=== PATIENT | male | born 1980 | race Caucasian/White ===

== ENCOUNTER 2017-05-29 07:50 | Emergency (ER) | payer SELFPAY ==
--- NOTE | 2017-05-29 08:47 | EDPHY ---
H & P Stated Complaint: Not sleeping, depressed, anxious, vague SI (no plan) Time Seen by Provider: 05/29/17 08:12 HPI/ROS: CHIEF COMPLAINT: Depression, insomnia HISTORY OF PRESENT ILLNESS: The patient is a 36-year-old man who comes to the emergency department stating that he has not been able to sleep much in the last 6 days. He is feeling depressed. He denies suicidality. He states that he went to an urgent care yesterday and was prescribed Ambien 10 mg. He took this and got about 3 hours of sleep and then could not sleep the rest of the night. He does have a history of depression and once was on an SSRI but was able to taper himself off of it several years ago and began exercising more. He states however that he began having problems this August after the election when he irrationally quit his job. Since that time has not been employed. He states that he has been doing a lot of reading and taking online classes. He denies drug or alcohol abuse. REVIEW OF SYSTEMS: Constitutional: denies: chills, fever, recent illness, recent injury EENTM: denies: blurred vision, double vision, nose congestion Respiratory: denies: cough, shortness of breath Cardiac: denies: chest pain, irregular heart rate, lightheadedness, palpitations Gastrointestinal/Abdominal: denies: abdominal pain, diarrhea, nausea, vomiting, blood streaked stools Genitourinary: denies: dysuria, frequency, hematuria, pain Musculoskeletal: denies: joint pain, muscle pain Skin: denies: lesions, rash, jaundice, bruising Neurological: denies: headache, numbness, paresthesia, tingling, dizziness, weakness Hematologic/Lymphatic: denies: blood clots, easy bleeding, easy bruising Immunologic/allergic: denies: HIV/AIDS, transplant EXAM: GENERAL: Well-appearing, well-nourished and in no acute distress. HEAD: Atraumatic, normocephalic. EYES: Pupils equal round and reactive to light, extraocular movements intact, sclera anicteric, conjunctiva are normal. ENT: TMs normal, nares patent, oropharynx clear without exudates. Moist mucous membranes. NECK: Normal range of motion, supple without lymphadenopathy or JVD. LUNGS: Breath sounds clear to auscultation bilaterally and equal. No wheezes rales or rhonchi. HEART: Regular rate and rhythm without murmurs, rubs or gallops. ABDOMEN: Soft, nontender, normoactive bowel sounds. No guarding, no rebound. No masses appreciated. BACK: No CVA tenderness, no spinal tenderness, step-offs or deformities EXTREMITIES: Normal range of motion, no pitting or edema. No clubbing or cyanosis. NEUROLOGICAL: Cranial nerves II through XII grossly intact. Normal speech, normal gait. 5/5 strength, normal movement in all extremities, normal sensation PSYCH: Normal mood, normal affect. SKIN: Depressed affect, slightly slow speech, answers all questions appropriately. Source: Patient Exam Limitations: No limitations - Personal History Current Tetanus Diphtheria and Acellular Pertussis (TDAP): Yes - Medical/Surgical History Hx Asthma: No Hx Chronic Respiratory Disease: No Hx Diabetes: No Hx Cardiac Disease: No Hx Renal Disease: No Hx Cirrhosis: No Hx Alcoholism: No Other PMH: anxiety/panic attacks - Family History Significant Family History: No pertinent family hx - Social History Smoking Status: Current every day smoker Alcohol Use: Sober Drug Use: None Constitutional: Initial Vital Signs Temperature (C) 36.7 C 05/29/17 07:51 Heart Rate 67 05/29/17 07:51 Respiratory Rate 16 05/29/17 07:51 Blood Pressure 135/79 H 05/29/17 07:51 O2 Sat (%) 98 05/29/17 07:51 O2 Delivery Mode Room Air Allergies/Adverse Reactions: No Known Allergies Allergy (Unverified 05/29/17 07:55) Home Medications: Medication Instructions Recorded Temazepam [Restoril 15 MG (*)] 15 mg PO HSPRN PRN #10 cap 05/29/17 Medical Decision Making ED Course/Re-evaluation: 10:00 a.m. the patient is medically clear, awaiting psychiatric evaluation 11:45 a.m. the patient has been evaluated by Mental Health. He is not suicidal. He contracts for safety. He will follow up with the walk-in clinic. I will prescribe her Restoril an attempt to help with insomnia. Discussed indications for returning. Differential Diagnosis: Partial list of the Differential diagnosis considered include but were not limited to; insomnia, depression and although unlikely based on the history and physical exam, I also considered bipolar, head injury, infection, psychosis , suicidality. I discussed these differential diagnoses and the plan with the patient as well as the usual and expected course. The patient understands that the diagnosis is provisional and that in medicine we are not always correct and that further workup is often warranted. Usual and customary warnings were given. All of the patient's questions were answered. The patient was instructed to return to the emergency department should the symptoms at all worsen or return, otherwise to followup with the physician as we discussed. - Data Points Laboratory Results: Laboratory Results 05/29/17 09:12 05/29/17 09:12 Departure - Departure Disposition: Home, Routine, Self-Care Clinical Impression: Insomnia Qualifiers: Insomnia type: unspecified Qualified Code(s): G47.00 - Insomnia, unspecified Depression Qualifiers: Depression Type: major depressive disorder Major depression recurrence: recurrent Active/Remission status: currently active Major depression episode severity: moderate Qualified Code(s): F33.1 - Major depressive disorder, recurrent, moderate Condition: Fair Instructions: Temazepam (By mouth), Depression (ED), Insomnia (ED) Referrals: NONE *PRIMARY CARE P,. [Primary Care Provider] - As per Instructions [facility] [Clinic] - As per Instructions Prescriptions: Temazepam [Restoril 15 MG (*)] 15 mg PO HSPRN PRN #10 cap PRN Reason: Insomnia
[2017-05-29 09:28] LABS: % IMMATURE GRANULYOCYTES 0.2 % (0.0-1.1); ABSOLUTE IMMATURE GRANULOCYTES 0.02 10^3/uL (0.00-0.10); ADD DIFF? NO; ADD MORPH? NO; ADD SCAN? NO; ATYPICAL LYMPHOCYTE FLAG 0 (0-99); FRAGMENT RBC FLAG 0 (0-99); HEMATOCRIT 41.2 % (40.0-51.0); HEMOGLOBIN 14.4 g/dL (13.7-17.5); LEFT SHIFT FLG 0 (0-99); LIPEMIA HEMOLYSIS FLAG 90 (0-99); MEAN CELL HEMOGLOBIN 30.6 pg (27.9-34.1); MEAN CELL VOLUME 87.5 fL (81.5-99.8); MEAN PLATELET VOLUME 9.2 fL (8.7-11.7); PLATELET CLUMPS FLAG 0 (0-99); PLATELET COUNT 215 10^3/uL (150-400); RED BLOOD CELL COUNT 4.71 10^6/uL (4.40-6.38); RED CELL DISTRIBUTION WIDTH 11.9 % (11.5-15.2)
[2017-05-29 09:48] LABS: ANION GAP 13 mEq/L (8-16); CARBON DIOXIDE 22 mEq/l (22-31); CHLORIDE 103 mEq/L (97-110); CREATININE 0.8 mg/dL (0.7-1.3); ETHANOL SERUM < 10 mg/dL (0-10); GLOMERULAR FILTRATION RATE > 60; GLUCOSE 95 mg/dL (70-100); POTASSIUM 4.3 mEq/L (3.5-5.2); SODIUM 138 mEq/L (134-144)
[2017-05-29 12:39] VITALS: BP 140/78; PULSE 58; RESP 18; TEMP 98.6; O2SAT 97
== END 2017-05-29 12:39 | disposition home or self-care (01) ==
DX: F33.1 Major depressive disorder, recurrent, moderate (principal); G47.00 Insomnia, unspecified; F17.200 Nicotine dependence, unspecified, uncomplicated
CPT/HCPCS: 80305; G0480

== ENCOUNTER 2017-05-31 18:17 | Inpatient (IN) | payer SELFPAY ==
[2017-05-31] MEDS ORDERED: NICOTINE 21 MG/24 HR PATCH TD ONE (18:27)
--- NOTE | 2017-05-31 18:27 | EDPHY ---
H & P Source: Patient - Medical/Surgical History Hx Asthma: No Hx Chronic Respiratory Disease: No Hx Diabetes: No Hx Cardiac Disease: No Hx Renal Disease: No Hx Cirrhosis: No Hx Alcoholism: No Other PMH: anxiety/panic attacks - Social History Smoking Status: Current every day smoker Time Seen by Provider: 05/31/17 18:21 HPI/ROS: CHIEF COMPLAINT: depression, insomnia, suicidal ideation HISTORY OF PRESENT ILLNESS: 36-year-old male arrives via police on an M1 hold after endorsing suicidal ideation with plan to hang himself. He owns a gun. He denies homicidal ideation. Denies complaints of physical pain or discomfort. States that he has not slept in 6 days. Use in the ER 2 days ago for complaints of depression insomnia, evaluated by mental health evaluated at time discharged home. REVIEW OF SYSTEMS: A ten point review of systems was performed and is negative with the exception of the items mentioned in the HPI PAST MEDICAL & SURGICAL HISTORY: Depression. Insomnia. SOCIAL HISTORY: denies alcohol or drug use, denies methamphetamine use. FAMILY HISTORY: No pertinent family history PHYSICAL EXAM (Prior to examination, patient consented to physical exam, hands were washed and my usual and customary physical exam procedures followed) 1) GENERAL: Well-developed, well-nourished, alert and oriented. Depressed, flat affect . 2) HEAD: Normocephalic, atraumatic 3) HEENT: Pupils equal, round, reactive to light bilaterally. Sclera anicteric. 4) NECK: Full range of motion, no meningeal signs. 5) LUNGS: Clear auscultation bilaterally, no wheezes, no rhonchi, no retractions. 6) HEART: Regular rate and rhythm, no murmur, no heave, no gallop. 7) ABDOMEN: No guarding, no rebound, no focal tenderness, 8) MUSCULOSKELETAL: No peripheral edema or discoloration. 9) BACK: , no obvious trauma, no visual or palpable abnormality. 10) SKIN: No rash, no petechiae. [11) Psychiatric: Patient is oriented X 3, there is no agitation. Depressed, flat affect, intermittently crying DIFFERENTIAL DIAGNOSIS: [in no particular order including but not limited to depression, suicidal ideation, homicidal ideation (Nadir Live Мария) Constitutional: Initial Vital Signs Temperature (C) 36.9 C 05/31/17 18:20 Heart Rate 63 05/31/17 18:20 Respiratory Rate 16 05/31/17 18:20 Blood Pressure 137/85 H 05/31/17 18:20 O2 Sat (%) 98 05/31/17 18:20 O2 Delivery Mode Room Air Allergies/Adverse Reactions: No Known Allergies Allergy (Verified 05/31/17 18:51) Home Medications: Medication Instructions Recorded Temazepam [Restoril 15 MG (*)] 15 mg PO HSPRN PRN #10 cap 05/29/17 Ambien 05/31/17 Medical Decision Making ED Course/Re-evaluation: Patient has been accepted for admission to [facility] Dr. Mani Frias accepting physician, [facility] paperwork completed. Care of patient under supervision of secondary supervising physician Dr Lenz . ( Nadir Live Мария) I did not see this patient while he was in the emergency department. However his care was discussed with the PA while the patient was in the department. I agree with treatment plan management (Zhang Lenz) - Data Points Laboratory Results: Laboratory Results 05/31/17 18:40 05/31/17 18:40 05/31/17 05/31/17 05/31/17 18:40 18:40 18:40 WBC 7.16 10^3/uL 10^3/uL (3.80-9.50) RBC 4.77 10^6/uL 10^6/uL (4.40-6.38) Hgb 14.5 g/dL g/dL (13.7-17.5) Hct 42.0 % % (40.0-51.0) MCV 88.1 fL fL (81.5-99.8) MCH 30.4 pg pg (27.9-34.1) MCHC 34.5 g/dL g/dL (32.4-36.7) RDW 11.9 % % (11.5-15.2) Plt Count 229 10^3/uL 10^3/uL (150-400) MPV 9.2 fL fL (8.7-11.7) Neut % (Auto) 64.7 % % (39.3-74.2) Lymph % (Auto) 24.4 % % (15.0-45.0) [place] % (Auto) 9.6 % % (4.5-13.0) Eos % (Auto) 0.3 % L % (0.6-7.6) Baso % (Auto) 0.7 % % (0.3-1.7) Nucleat RBC Rel Count 0.0 % % (0.0-0.2) Absolute Neuts (auto) 4.63 10^3/uL 10^3/uL (1.70-6.50) Absolute Lymphs (auto) 1.75 10^3/uL 10^3/uL (1.00-3.00) Absolute Monos (auto) 0.69 10^3/uL 10^3/uL (0.30-0.80) Absolute Eos (auto) 0.02 10^3/uL L 10^3/uL (0.03-0.40) Absolute Basos (auto) 0.05 10^3/uL 10^3/uL (0.02-0.10) Absolute Nucleated RBC 0.00 10^3/uL 10^3/uL (0-0.01) Immature Gran % 0.3 % % (0.0-1.1) Immature Gran # 0.02 10^3/uL 10^3/uL (0.00-0.10) Sodium 137 mEq/L mEq/L (134-144) Potassium 4.2 mEq/L mEq/L (3.5-5.2) Chloride 102 mEq/L mEq/L (97-110) Carbon Dioxide 25 mEq/l mEq/l (22-31) Anion Gap 10 mEq/L mEq/L (8-16) BUN 15 mg/dL mg/dL (7-23) Creatinine 0.9 mg/dL mg/dL (0.7-1.3) Estimated GFR > 60 Glucose 100 mg/dL mg/dL (70-100) Calcium 9.7 mg/dL mg/dL (8.5-10.4) Salicylates < 1.0 mg/dL L mg/dL (2.0-20.0) Urine Opiates Screen NEGATIVE (NEGATIVE) Acetaminophen < 10 mcg/mL L mcg/mL (10-30) Urine Barbiturates NEGATIVE (NEGATIVE) Ur Phencyclidine Scrn NEGATIVE (NEGATIVE) Ur Amphetamine Screen NEGATIVE (NEGATIVE) U Benzodiazepines Scrn NON-NEGATIVE H (NEGATIVE) Urine Cocaine Screen NEGATIVE (NEGATIVE) U Marijuana (THC) Screen NEGATIVE (NEGATIVE) Ethyl Alcohol < 10 mg/dL mg/dL (0-10) Medications Given: Discontinued Medications Lorazepam (Ativan) 1 mg PO EDNOW ONE Stop: 05/31/17 19:17 Last Admin: 05/31/17 19:18 Dose: 1 mg Nicotine (Nicoderm Cq) 21 mg TD EDNOW ONE Stop: 05/31/17 18:28 Last Admin: 05/31/17 19:13 Dose: 21 mg Departure - Departure Disposition: [facility] IP Clinical Impression: Suicidal ideation, Severe major depression Condition: Fair Referrals: Patient,NotPresent [Primary Care Provider] - As per Instructions
[2017-05-31 18:52] LABS: % IMMATURE GRANULYOCYTES 0.3 % (0.0-1.1); ABSOLUTE IMMATURE GRANULOCYTES 0.02 10^3/uL (0.00-0.10); ADD DIFF? NO; ADD MORPH? NO; ADD SCAN? NO; ATYPICAL LYMPHOCYTE FLAG 20 (0-99); FRAGMENT RBC FLAG 0 (0-99); HEMOGLOBIN 14.5 g/dL (13.7-17.5); LEFT SHIFT FLG 0 (0-99); LIPEMIA HEMOLYSIS FLAG 90 (0-99); MEAN CELL HEMOGLOBIN 30.4 pg (27.9-34.1); MEAN CELL HEMOGLOBIN CONCENTR. 34.5 g/dL (32.4-36.7); MEAN CELL VOLUME 88.1 fL (81.5-99.8); MEAN PLATELET VOLUME 9.2 fL (8.7-11.7); PLATELET CLUMPS FLAG 0 (0-99); PLATELET COUNT 229 10^3/uL (150-400); RED BLOOD CELL COUNT 4.77 10^6/uL (4.40-6.38); RED CELL DISTRIBUTION WIDTH 11.9 % (11.5-15.2)
[2017-05-31 19:14] LABS: ANION GAP 10 mEq/L (8-16); CALCIUM 9.7 mg/dL (8.5-10.4); CARBON DIOXIDE 25 mEq/l (22-31); CHLORIDE 102 mEq/L (97-110); CREATININE 0.9 mg/dL (0.7-1.3); ETHANOL SERUM < 10 mg/dL (0-10); GLOMERULAR FILTRATION RATE > 60; GLUCOSE 100 mg/dL (70-100); POTASSIUM 4.2 mEq/L (3.5-5.2); SALICYLATE < 1.0 mg/dL (2.0-20.0); SODIUM 137 mEq/L (134-144)
[2017-05-31] MEDS ORDERED: LORazepam 1 MG TAB PO ONE (19:16)
[2017-06-01] MEDS ORDERED: MAG HYDROX/AL HYDROX/SIMETH 30 ML UDCUP PO PRN (00:42)
[2017-06-01] MEDS ORDERED: MELATONIN 3 MG TAB PO PRN (00:42)
[2017-06-01] MEDS ORDERED: MAGNESIUM HYDROXIDE 30 ML UDCUP PO PRN (00:42)
[2017-06-01] MEDS ORDERED: ZOLPIDEM TARTRATE 5 MG TAB PO PRN (00:42)
[2017-06-01] MEDS ORDERED: OLANZapine DISINTEGR 5 MG TAB PO PRN (00:42)
[2017-06-01] MEDS ORDERED: ACETAMINOPHEN 325 MG TAB PO PRN (00:42)
[2017-06-01] MEDS ORDERED: LORazepam 1 MG TAB PO PRN (00:42)
[2017-06-01] MEDS ORDERED: FLU VACC QS 2017-18 (3YR+)/PF 0.5 ML SYR (FLUARIX QUAD) IM ONE (12:03)
--- NOTE | 2017-06-01 14:01 | BAPA ---
[f rep st] ADMISSION PSYCHIATRIC ASSESSMENT DATE OF SERVICE: 06/01/2017 CHIEF COMPLAINT: The patient says "I don't feel suicidal anymore. I just want to go home and sleep in my own bed." HISTORY OF PRESENT ILLNESS: This is a 36-year-old man, mixed descent, brought to the ED by tamanna gould on an M1 hold after endorsing suicidal ideation with a plan to hang himself. Also had a plan to shoot himself. The patient initially went to the [facility] looking for h elp. They gave him an address for the [facility]SU. He says that he got into a cab. The cab took him to [facility] t he thought was the address, and it turns out that it was a dance studio. He says that he then went back to the walk-in clinic, and they told him that the CSU was in [place]. According to the arslan castillo, he then just went home and says that the police showed up at his house with an lube worker, an d the lube worker filled out an M1 hold, which states "Client states that he will kill himself if he goes home tonight. Client states he cannot take it anymore, has not slept in 6 days. Client is very anxious. Client has access to a 0.380 Glock per client report." The patient told the [facility] coal deliverer that he has felt depressed and sad over the past week. Approximat shady 6 days ago, he began to have almost nightly panic attacks. Due to these, he has had very little sleep for multiple days. His PCP prescribed him Ambien and then temazepam, neither were effective ac cording to the patient. On his own he took Benadryl. It did not work either. He tried running, an activity that helps him to relax and helped alleviate his depression in the past, but says that it wo uld not help. When he presented to the walk-in clinic earlier today, he describes feelings of hopele ssness, fear, paranoia, insomnia, loss of interest in activities, and SI. The patient says that he h as been discouraged about his future because he was let go from his job in August. It is not clear what the circumstances were. He has not been able to find employment since then. He feels like he i s "a failure." He says that there is not much that he does that he enjoys. He feels guilty, is disa ppointed in himself, more critical of himself than he used to be. The patient says that he has not g eleonora any mental health treatment for a long time. It has been more than 10 years since he saw a cou nselor or took any medication for his mood. He says he has been living on saved income and trying to change careers, but says that he has not been very successful, and this has been a source of a lot o f anxiety and frustration, which has been going on actually for several months. He says it has just been worse over the past week or so that he started having panic attacks. He said that he also ended on again, off again relationship with his girlfriend after 2 years recently. A relative who has bee n staying with him moved out. 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 He said he has been very discouraged because he did not hear back from any of the places that he applied. He says that has g eleonora him even more down and depressed, and made him feel more like a failure, but says that he has b een waiting to hear back from one place in particular. PAST PSYCHIATRIC HISTORY: The patient states that he has felt anxious and depressed since he was a c hild, though never formally diagnosed, and has never been as severe as he is experiencing now. He pickard d 1 episode of depression in his early 20s that he says was similar to what he is experiencing now. He had been suspended for 2 years by for setting off fire crackers. He says that he felt very iso lated at that time. He lost most of his friends, and people that he knew had moved away, and he was 2 years behind in college. He says back then that he had thoughts similar to what he is having now, thinking "I would rather just ," but no plans and no attempts. He did see a counselor during this time. He also saw a psychiatrist who placed him on Paxil. He says that the Paxil was "not a good e xperience." He said that it "didn't work out very well for me." He felt like the medication was not helpful, and he said that he had some intolerable side effects, which he says had to do with feeling like he saw colors in his peripheral vision. He denies any other side effects or adverse experience s from being on the SSRI, but said that it made him not want to take medications again. He says, "I really am not interested in being on antidepressants." The patient has no prior history of psychiatric hospitalizations, and has not seen a psychiatrist sin ce the episode in his 20s. He has also not seen a counselor since that time. His PCP was prescribin g medications for insomnia, but was not addressing his underlying depression or what sounds like linux systems administrator maribel anxiety. He was getting temazepam and Ambien, which he says were not very helpful. When this MD met with the patient, the patient severely minimized his symptoms, and stated that he had checked hi s e-mail this morning with the respiratory care specialist, Maria Isabel, and he said that he got a job offer from one of the places where he had applied. He said that he felt "really stoked" and denied that he was feel ing sad or depressed or anxious any longer. He also slept 5-1/2 hours last night after taking 2 mg o f Ativan, said it was "the best sleep I've had in a long time." The patient feels like his mood has "turned the corner," and he no longer endorses feeling helpless or hopeless. He no longer feels a fa ilure. He is not judgemental or self critical. He denies anhedonia. He is future oriented. He say s he is really excited to go to work for this [employer], and feels like all of his problems have been r esolved overnight. When MD attempted to ask the patient what had changed in terms of his coping stra tegies or his resources to deal with adverse events, he acknowledged that things were really no diffe rent. When MD pointed out that the patient reports that he has had a lifelong problem with depressio n and anxiety, particularly when circumstances in his life did not go well, the patient admitted that was true. When MD asked what he planned to do in the future so that he did not get into a situation like he experienced in his early 20s and like he experienced over the last couple of months, the pat thang had no real plan except that he said that he was willing to speak to a therapist. He said "it w ould probably help for me to have somebody to talk to." The patient did not want to take medications . He refused to consider the option of being on an antidepressant, even when MD explained that SSRIs , and SNRIs, and other similar medications in addition to being the first-line treatment for depressi on or also anxiolytics, and they are also the first-line treatment for people with generalized anxiet y disorder, as well as panic disorder. The patient still declined to consent to taking medication. He said "now that I have heard about this job offer I am feeling better." He denied any thoughts, pl ans, or intents to hurt himself or anybody else. He said "I have a list of names" of therapists that he had been given by friends, and he was going to call them, and he was going to make an appointment to see them as soon as possible. ALLERGIES: The patient reports that he has no known drug allergies. CURRENT MEDICATIONS: The patient is not currently taking any medications, although he has recently b een taking temazepam, Ambien, and Benadryl for sleep. PAST MEDICAL HISTORY: He denies any past medical history. PAST SURGERY HISTORY: He denies any surgical history. SOCIAL HISTORY: The patient graduated college with a degree in math and computer science. He lives alone in his own apartment in [place]. He states that he has several friends in [place] and in the [facility]. He left his job in August of 2016 under unclear circumstances, whether he was let go, fired, suspended, or quit. He does not give any details. The patient had a relative who had bee n staying with him, but moved out recently. He also ended is on again, off again relationship with h is girlfriend after 2 years. SUBSTANCE USE HISTORY: The patient states that he drinks alcohol on the weekends. He reports drinki ng up to 3 beers and possibly 1 mixed drink, such as a Glenny, per occasion. He says that he does not drink Saturday through , but drinks Saturday, Saturday, and Saturday. He states that he has b een smoking marijuana regularly. He says up until about a month ago he was smoking "heavily." He wa s vaping THC oil, and he says that he was smoking daily, but says that over the last 2 weeks he has n ot smoked because he has been going on job interviews and having urine drug screens. When MD asked, the patient denied using any other recreational substances, but he told the coal deliverer in the ED that he experimented with NMDA, LSD, and shrooms in the past, but did not say how recently. FAMILY HISTORY: The patient reports that his maternal grandmother has depression, and his brother se es a counselor. He does not know of anybody else in the family with a mental illness or with a subst ance abuse problem. LABS: On admission are as follows: White cell count was 7.16, hemoglobin was 14.5, hematocrit was 4 2, platelet count was 229, sodium was 137, potassium was 4.2, chloride was 102, BUN was 15, creatinin e was 0.9, glucose was 100, calcium was 9.7 Urine drug screen was positive for benzos, which he had been given in the ED, was negative for all ot her drugs of abuse. His salicylate and acetaminophen levels were both undetected. His ethyl alcohol level was less than 10. MENTAL STATUS EXAMINATION: This is an average height, average build, otherwise healthy-appearing Asi an [place] man. He is pleasant and cooperative, but somewhat guarded and anxious during the intervi ew with the MD. His affect is anxious. He is fidgeting, has difficulty making eye contact. His moo d he says "good." His thought process is linear and goal directed. His thought content reveals no e vidence of psychosis. He exhibits no signs or symptoms of mor. He denies feeling depressed, sad, or hopeless at the current time, even though those were symptoms that he reported when he went to the walk-in clinic and to the ED coal deliverer last night. He is alert and oriented x4. His intellect appe ars to be average, as evidenced by educational/occupational history, fund of knowledge, and vocabular y. His insight and judgment appear to be poor based on the fact that the patient is minimizing his s ymptoms, and does not seem to be interested in treating what sounds like chronic depression and anxie ty, which are exacerbated by situational stressors. DIAGNOSES: 1. Major depressive disorder, recurrent, severe. 2. Generalized anxiety disorder or anxiety not otherwise specified. 3. Panic disorder without agoraphobia. 4. Rule out substance induced mood disorder. 5. Cannabis use disorder, severe. 6. Alcohol use disorder, moderate. 7. Psychosocial stressors include unemployed, financial problems, lack of social support, recent sebastian ak up with his girlfriend. PLAN OF TREATMENT: 1. Admit the patient to behavioral services inpatient unit on an M1 hold. 2. Monitor closely for safety and on suicide precautions. The patient is currently denying any thou ghts, plans, or intent to hurt himself or anyone else. He says he is no longer having suicidal thoug hts, and that he feels "really stoked" about his future now that he has a job offer. 3. The MD has reviewed the risks, benefits, side effects of several different antidepressant medicat ions, including the class of medications, the SSRIs, that he has been on in the past. MD went into s ome detail to describe how the medications are helpful both for depression, as well as for treating a nxiety, and panic disorder, and that it is better to treat anxiety with a long-term strategy rather t butler to treat it episodically, as he has been doing with benzodiazepines for panic and for insomnia. MD explained that these are symptoms of an underlying disorder that he is not currently being treated for. The patient says that he understands this, but does not want to be on medication for his mood or for his anxiety. He only wants to use medications as needed for insomnia. He states that he is a lso willing to talk to a therapist and a counselor. MD said that it would be helpful for the patient to develop some coping strategies for dealing with stressors in his life when things seem overwhelmi ng. This is a significant trigger for the patient and has been, as the patient reports, for most of his life, but he has only ever addressed it once when he was in his 20s because he was referred by ak [facility] to get mental health treatment, and now that he went to the walk-in clinic to get help, but does not want to pursue ongoing treatment now that he feels like things have "turned the corner" now that he has a job offer. 4. We will engage the patient in individual, group, and milieu therapies. 5. Estimated length of stay is 2-3 days. /[id number]/MODL
--- NOTE | 2017-06-01 19:17 | HOSPPROG ---
Hospitalist Progress Note Assessment/Plan: Reason for consultation: Medical evaluation History of present illness: Pt is a 36yo M who p/w insomnia x 7 days. He felt like a switch turned on in his body and he has been unable to sleep. He has tried using Ambien and temazepam, but neither helped. He tried taking lorazepam 2mg tabs, which helped slightly. He does not feel tired during the day. He admits that he has a lot of thoughts going through his mind and finds it difficult to shut them down to sleep. He does not consume caffeine. He does not do stimulating activities prior to going to sleep at night. He has been frustrated with lack of sleep and is wondering if there is some sort of nerve poisoning that he might have suffered. This has never happened to him in the past. Past medical history: none. Past surgical history: none. Medications: Please see med rec form. Allergies: NKA. Social history: Denies alcohol or drug use. +cigarette smoker - 1ppd. Family history: Father - bipolar. Review of systems: 10 point review of systems was conducted and is negative except per HPI Physical exam: Vitals: Reviewed General: The patient is a male who is alert and in no acute distress. HEENT: normocephalic, extraocular movements intact, conjunctivae clear, no lesions on face. Nares and oral mucosa pink and moist. Neck: trachea midline, no visible masses, no external lesions. CV: +S1/S2, RRR, no MRG. Resp: unlabored, CTAB no RRW. Abd: soft and nondistended. Musculoskeletal: Normal gait. Neuro: cranial nerves II XII grossly intact. Intact gross motor and sensory function. Psych: anxious mood/appropriate affect. Skin: no pallor. Labs: CBC-WBC 7, HGB 14.5, platelets 229. BMP: Sodium 137, potassium 4.2, chloride 102, CO2 25, BUN 15, creatinine 0.9, glucose 100, calcium 9.7. U tox-positive for benzos. Negative for alcohol in blood. Impression and plan: Insomnia Query hypomanic or manic episode -Pt is medically clear for Psych eval and Tx. -Consider to start Seroquel or trazodone to help pt sleep at night. -Currently pt has benzo prn insomnia which might help a little, but this is not a good fci Tx. -Cont nicotine patch. Objective: Vital Signs Temp Pulse Resp BP Pulse Ox 37.2 C 74 14 125/75 H 98 05/31/17 23:54 06/01/17 01:02 06/01/17 01:02 06/01/17 01:02 06/01/17 01:02 ICD10 Worksheet Patient Problems: Problems Problem Status Onset Depression Acute Insomnia Acute
[2017-06-01] MEDS: LORazepam 1 MG TAB PO PRN (21:57)
[2017-06-02] MEDS: NICOTINE POLACRILEX 2 MG GUM B PRN ×3 (00:48→15:16)
[2017-06-02] MEDS: LORazepam 1 MG TAB PO PRN (05:47)
--- NOTE | 2017-06-02 13:32 | SOAPPROG ---
SOAP Progress Note Assessment/Plan: Assessment: 36 yo man with h/o depression, anxiety, cannabis use disorder and paranoid delusions. 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 Brother also reports patient was worried that "people he saw with earbuds" were tracking him. Brother admits patient bought gun d/t fear and concerns. But brother says patient is usually able to hide his paranoia and delusions from others. 06/02/17 13:28 1. talked to patient about trial of Zyprexa to help with thoughts, anxiety and to improve his sleep. He took one PRN dose of 5mg today and agreed to take one again tonight. Subjective: More collateral from brother indicates patient has likely had paranoid delusions since at least 07/2016 when he quit his job. [facility] has removed gun from patient's apartment. MD told patient that Zyprexa was likely to help with his worried and scared thoughts and help him be able to sleep better. After discussing r/b/se's, patient agreed to trial of Zypexa. He denies any SI/HI. Objective: Vital Signs Temp Pulse Resp BP Pulse Ox 37.0 C 79 16 127/66 H 96 06/02/17 05:47 06/02/17 05:47 06/02/17 05:47 06/02/17 05:47 06/02/17 05:47 MSE: Lying in bed, c/o poor sleep (staff report he slept 6 hrs). Affect: Anxious Mood: "Anxious" TP: Disorganized, perseverative about sleep/anxiety TC: Denies any AH/VH, denies paranoia but this seems to underlie much of his anxiety, no SI/HI - Time Spent With Patient Time Spent With Patient: 20" - Pending Discharge Pending Discharge Within 24 Hours: No Pending Discharge Within 48 Hours: No ICD10 Worksheet Patient Problems: Problems Problem Status Onset Depression Acute Insomnia Acute
[2017-06-02] MEDS ORDERED: OLANZapine DISINTEGR 5 MG TAB PO SCH (21:00)
[2017-06-03 06:50] VITALS: BP 119/63; PULSE 66; RESP 14; TEMP 98.2; O2SAT 99
--- NOTE | 2017-06-03 11:15 | SOAPPROG ---
SOAP Progress Note Assessment/Plan: Assessment: Bipolar Disorder I, depressed with mixed features and psychotic features Insomnia Patient had severe insomnia with mood swings and brief SI prior to admit. Has been on unit >48 hours without further SI. Patient reports improved sleep and mood with Olanzapine and denies dangerous thoughts. Patient not willing to stay on inpatient unit but is willing to take medication after discharge and attend follow up appointments, is willing to stay with family in short term. Plan: Discussed voluntary treatment to clarify mood stability; patient not willing to stay at this time Spoke on speaker phone with brother and patient. Brother reports gun removed from home. Father and brother willing to pickup driver patient at discharge and assist him in filling prescriptions and arranging/attending outpatient MH follow up Provided patient with education about bipolar disorder and risks/benefits of mood stabilizer medications such as lithium or olanzapine Reviewed risk of weight gain, diabetes, tardive dyskinesia with Olanzapine Discussed dangers of sedative medication Plan discharge later today with Olanzapine 10mg PO QHS (#30), Ativan 0.5mg PO QHS PRN insomnia (#10) and [facility] follow up 06/03/17 11:16 Subjective: "I feel pretty good today, slept better" Patient reports that overall he is feeling improved. Reports sleeping 8 hours. Tolerated 2 doses of Olanzapine 5mg yesterday without side effects. Denies paranoia about being monitored. Reports feeling 'depressed because I am here, I would feel better if I was at home.' Reports living independently with a dog and a cat, had worked at [employer] for 10 years prior to quitting job. Reports 1- 2 weeks of severe insomnia with mood swings, racing thoughts, loud speech, irritability, and brief SI to shoot or hang self. Reports no longer having suicidal thoughts and feels mood is stable. Denies physical complaints. Reports he is willing to take psychiatric medication after discharge and stay short term with family and get outpatient follow up. Reports no clear benefit from trial of Temazepam and Ambien in past week but felt lorazepam may have helped with sleep. Reports he is unwilling to stay in hospital voluntary for further treatment. Objective: Vital Signs Temp Pulse Resp BP Pulse Ox 36.8 C 66 14 119/63 99 06/03/17 06:00 06/03/17 06:00 06/03/17 06:00 06/03/17 06:00 06/03/17 06:00 Alert male. Cooperative. Appears thin. Speech RRR. Mood 'pretty good' Thoughts organized. Denies SI or HI. Denies AH or paranoia. Good memory. Improved insight. Appropriate judgment. - Time Spent With Patient Time Spent With Patient: 45 - Pending Discharge Pending Discharge Within 24 Hours: Yes Pending Discharge Date: 06/03/17 Pending Discharge Time: 17:00 Physical Exam - Physical Exam General Appearance: alert Neuro/Psych: no motor/sensory deficits ICD10 Worksheet Patient Problems: Problems Problem Status Onset Depression Acute Insomnia Acute
--- NOTE | 2017-06-03 15:04 | BDS ---
[f rep st] BEHAVIORAL HEALTH DISCHARGE SUMMARY DISCHARGE DATE 06/03/17 ADMITTING DIAGNOSES: Major depressive disorder, recurrent, severe. Generalized anxiety disorder. Panic disorder. Suicidal ideation. IDENTIFICATION: This is a 36-year-old male who is single with no children, who lives in an apartment with a dog and a cat. Both his father and his brother live in the [place] area. He has no prior history of psychiatric treatment. 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 BRIEF PSYCHIATRIC HISTORY: The patient denies past psychiatric hospitalizations , suicide attempts, violence toward others or any current outpatient mental health treatment. Patient had gone to the [place] walk in clinic twice in the week prior to admission with complaints of severe insomnia. BRIEF MEDICAL HISTORY: Patient denies any traumatic brain injuries, seizures, or chronic severe medical problems. FAMILY HISTORY: The patient's father reportedly has bipolar disorder. REASON FOR ADMISSION: The patient was taken to the emergency department on a M1 mental health hold. The patient reportedly went to a walk-in clinic here in [place] twice in the past week with complaints of insomnia. During the 2nd visit, he reported suicidal thoughts to shoot himself or hang himself and was placed on an M1 hold and transferred to the emergency department. The patient in the emergency department received 1 mg of Ativan. INITIAL EXAM: The patient is a thin male without tremors or weakness, who was a poor historian, who reported severe anxiety, panic attacks, depression symptoms, and brief thoughts to harm himself. He denied violent thoughts or auditory hallucinations. There was concern that he had had past paranoia about being monitored, but minimized these symptoms. HOSPITAL COURSE: The patient was started on olanzapine for insomnia, paranoia due to concern that the patient either had insomnia secondary to bipolar disorder or from a psychotic episode. The patient tolerated olanzapine 5 mg at bedtime and had improvement in sleep, then had olanzapine 5mg twice on day #2. He had baseline blood work that showed a CBC was normal, BMP was within normal limits, urine drug screen was only positive for benzodiazepines. However, the patient had been taking zolpidem and temazepam during the previous week. The patient reported in the week prior to admission having severe insomnia ( multiple days without sleep) as well as racing thoughts, agitation, mood swings , severe anxiety, and feelings of restlessness. The patient, on the unit, was able to sleep 8 hours with a combination of olanzapine and lorazepam. He received 5 mg of olanzapine during the day and 5 mg at night. When I evaluated the patient on June 03, he reported that he had slept well. He reported a stable mood and denied severe anxiety. He reported that he felt improved and wanted to be discharged. The patient's brother reports the patient does not have a prior history of severe mental illness, but may have had some paranoia in the past and some depression symptoms in the past year concurrent with unemployment. The patient's brother and the patient's father are agreeable to come to the unit to review the patient 's discharge paperwork and assist him in getting his prescriptions filled, monitoring his medication compliance and assisting him in getting to outpatient followup. The patient was agreeable to this plan. The patient was calm and appropriate on the unit and was able to attend groups. He did not display any reckless or impulsive behavior on the unit. Did not appear disorganized and was appropriate in safety planning and reviewing coping skills to use if he had suicidal thoughts. Of note, the patient's brother and father had already removed the patient's gun from his home. The patient denied having paranoia on the unit. He denied any further thoughts to harm himself on the unit as well. CONDITION AT DISCHARGE: He is an alert, male in no acute distress. He is ambulatory, cooperative and pleasant. His speech is regular rate and rhythm. His thoughts are organized. He denies any thoughts to hurt himself or others. He denies auditory hallucinations or paranoia. He has fair insight, fair memory and appropriate judgment. DISCHARGE DIAGNOSES: Bipolar disorder type 1, depressed with mixed and psychotic features; Insomnia - resolved; suicidal ideation - resolved DISCHARGE MEDICATIONS: Olanzapine 10 mg p.o. at bedtime, lorazepam 0.5 mg p.o. at bedtime p.r.n., insomnia #10. DISPOSITION: The patient will be leaving the hospital with either his father or his brother and will stay with them for several nights prior to returning to his apartment. The patient's brother and father have been watching the patient' s dog and cat and will assist the patient with followup appointments. The patient will go to [facility] for further mental health treatment. LEGAL STATUS: The patient was admitted on an M1 hold. The patient was unwilling to stay in the hospital on a voluntary basis beyond the expiration of the mental health hold. The patient has repeatedly denied being a danger to himself after receiving treatment here so will not file a short term certification at this time. The patient will be discharged and receiving outpatient treatment on a voluntary basis. INFORMED CONSENT: The patient was given education about bipolar disorder as well as the risks and benefits of the olanzapine, including the risks of weight gain, diabetes, hyperlipidemia, and tardive dyskinesia. Patient was also given information about [facility] as alternative treatment option. He was also given warning about lorazepam causing disinhibition, driving impairment or severe sedation. /[id number]/MODL MTDD
[2017-06-03] MEDS ORDERED: LORazepam 0.5 MG TAB ONE (18:59)
[2017-06-03] MEDS ORDERED: LORazepam 1 MG/0.5 ML UDSYR PO SCH (21:00)
[2017-06-03] MEDS ORDERED: OLANZapine 10 MG TAB PO SCH (21:00)
[2017-06-03] MEDS ORDERED: LORazepam 0.5 MG TAB PO SCH (21:00)
== END 2017-06-03 19:05 | disposition home or self-care (01) | DRG 885 ==
LOC: BBEH 06-01 00:15
PROVIDERS: ADMIT Psychiatry & Neurology Psychiatry; ATTEND Psychiatry & Neurology Psychiatry
DX: F25.1 Schizoaffective disorder, depressive type (principal); F23 Brief psychotic disorder; R45.851 Suicidal ideations; F51.05 Insomnia due to other mental disorder; F12.90 Cannabis use, unspecified, uncomplicated; Z72.89 Other problems related to lifestyle; Z56.0 Unemployment, unspecified; F17.210 Nicotine dependence, cigarettes, uncomplicated; Z81.8 Family history of other mental and behavioral disorders; Z23 Encounter for immunization
CPT/HCPCS: 80305; G0008; G0480

== ENCOUNTER 2017-07-08 20:31 | Emergency (ER) | payer MEDICAID ==
[2017-07-08 20:51] VITALS: RESP 16
[2017-07-08] MEDS ORDERED: SKIN ADHESIVE (DERMABOND) 1 EACH TP ONE (21:39)
--- NOTE | 2017-07-08 21:50 | EDPHY ---
H & P Time Seen by Provider: 07/08/17 21:10 HPI/ROS: CHIEF COMPLAINT: facial injury HISTORY OF PRESENT ILLNESS: 36-year-old male states that last evening he sustained a mechanical fall impacted his right lateral face against the door frame. No loss of consciousness. This was mechanical non syncopal episode. He went to [facility] for evaluation of lacerations referred to the ER for laceration repair. He denies ocular involvement. Denies visual acuity changes. Denies headache. Denies nausea or vomiting. Denies midline C-spine pain. Denies peripheral paresthesia, weakness, numbness. Denies chest pain or trauma. Denies back pain or trauma. REVIEW OF SYSTEMS: A ten point review of systems was performed and is negative with the exception of the items mentioned in the HPI PAST MEDICAL/SURGICAL HISTORY: Tetanus up-to-date. no anticoagulant use, no relevant medical/surgical history SOCIAL HISTORY: denies alcohol use at time of incident PHYSICAL EXAM 1) GENERAL: Well-developed, well-nourished, alert and oriented. Appears to be in no acute distress. Answering questions appropriately. 2) HEAD: Normocephalic, atraumatic 3) HEENT: Pupils equal, round, reactive to light bilaterally. Negative Horners. 1 cm laceration bridge of nose. 1 cm laceration inferior to the right mid eyebrow. Laceration inferior to the right lower lateral lid which does not cross the lid margin measuring 1 cm. No hyphema. Inferior to the right lower lid his a 1.5 cm laceration. No subconjunctival hemorrhage. Nasopharynx, oropharynx, clear. No deformity or angulation of nose. No septal hematoma. No rhinorrhea. No oral trauma. Ears bilaterally with normal tympanic membranes. No hemotympanum. No fluid or blood in the external auditory canal. No raccoon eyes. No Wheatley sign. Teeth are normally aligned with no gross malocclusion, TMJ bilaterally nontender, facial bones nontender including the zygomatic arch, maxilla mandible. 4) NECK: No cervical collar is on. Posterior cervical spine is nontender, no stepoff, no effusion. Full range of motion which does not elicit any midline cervical spine pain, no posterior midline tenderness, no step-off. 5) LUNGS: Clear to auscultation bilaterally, no wheezes, no rhonchi, no retractions. No obvious signs of trauma. No chest wall pain. No flaring, no grunting. Moving symmetrically. No crepitus. 6) HEART: Regular rate and rhythm, 7) ABDOMEN: No guarding, no rebound, no focal tenderness, no peritoneal signs, no signs of trauma, no ecchymosis 8) MUSCULOSKELETAL: Moving all extremities, no focal areas of tenderness, no obvious trauma. 9) BACK: No midline vertebral tenderness, no fluctuance, no step-off, no obvious trauma, no visual or palpable abnormality. 10) SKIN: laceration to face n DIFFERENTIAL DIAGNOSIS: [in no particular order including but not limited to laceration, abrasion, nasal fracture Smoking Status: Current every day smoker Constitutional: Initial Vital Signs Temperature (C) 37 C 07/08/17 20:46 Heart Rate 73 07/08/17 20:46 Respiratory Rate 16 07/08/17 20:46 Blood Pressure 133/75 H 07/08/17 20:46 O2 Sat (%) 98 07/08/17 20:46 O2 Delivery Mode Room Air Allergies/Adverse Reactions: No Known Allergies Allergy (Verified 05/31/17 18:51) Home Medications: Medication Instructions Recorded Trintellix 07/08/17 Zyprexa 07/08/17 MDM/Departure - MDM Procedures: Procedure: Laceration repair. I explained the indications, risks and benefits for both laceration repair and anesthetic administration. Verbal consent was obtained from the patient . All the lacerations were anesthetized using 0.5% bupivicaine without epinephrine digital nerve block. After anesthetic administered the patient was observed for a period of time and had no apparent adverse effects. The wound was cleaned, prepped, draped in normal sterile fashion and explored to its base. No foreign body seen, no foreign bodies palpated. There were no deep structures involved. The laceration on the bridge of nose and right inferior eyebrow were repaired with tissue adhesive. The right inferior lower lid laceration repaired with 5 simple interrupted 6 0 Prolene sutures pain careful attention to realign anatomic landmarks. The wound repair was complex. The procedure was performed by myself. Patient has been informed that scarring will occur, although efforts have been made to minimize this. ED Course/Re-evaluation: After evaluating the patient's laceration I did not think that plastics surgery consultation is indicated as this laceration did not cross the lid margin I felt comfortable with primary wound closure in the emergency department. This was discussed with secondary supine position Dr. Chandan Durant in the ER. Wound closure was subsequently performed. He is also noted to have a blunt injury to the bridge of his nose. We discussed possibility of acute nasal fracture. Do not think that emergent imaging studies indicated. Given follow-up information with otolaryngology. To return to ER in 5 days for suture removal. Usual and customary discharge precautions instructions provided. He feels comfortable being discharged. - Depart Disposition: Home, Routine, Self-Care Clinical Impression: Possible nasal fracture Facial laceration Qualifiers: Encounter type: initial encounter Qualified Code(s): S01.81XA - Laceration without foreign body of other part of head, initial encounter Condition: Good Instructions: Nasal Fracture (ED), Laceration (ED) Additional Instructions: Return to the ER in 5 days for suture removal. Referrals: Yoav Dong MD [Medical Doctor] - 2-3 days, call for appt. (Dr Dong is an ear nose throat doctor.) Return, to the ER in 5 days for suture removal [Other] - As per Instructions
[2017-07-08 22:06] VITALS: BP 132/81; PULSE 70; TEMP 98.1; O2SAT 96
== END 2017-07-08 22:05 | disposition home or self-care (01) ==
PROC: 0HQ1XZZ Repair Face Skin, External Approach (ICD-10-PCS; principal; 2017-07-08)
DX: S01.81XA Laceration without foreign body of other part of head, initial encounter (principal); F17.200 Nicotine dependence, unspecified, uncomplicated; W01.198A Fall on same level from slipping, tripping and stumbling with subsequent striking against other object, initial encounter

== ENCOUNTER 2017-07-21 14:14 | Emergency (ER) | payer MEDICAID ==
[2017-07-21 14:24] VITALS: RESP 16; TEMP 97.7
--- NOTE | 2017-07-21 15:30 | EDPHY ---
H & P Time Seen by Provider: 07/21/17 14:55 HPI/ROS: CHIEF COMPLAINT: Insomnia HISTORY OF PRESENT ILLNESS: Patient is a 36-year-old male with a history of anxiety and panic attack who presents to the emergency department complaining of insomnia. He states his symptoms started when he was starting a new job recently. He states he has not been able to sleep well for 2 weeks. Patient feels "like a zombie. "Patient has no headache. No chest pain or shortness of breath. No abdominal pain. No recent trauma or injury. The patient drinks alcohol occasionally. Occasionally smokes marijuana. REVIEW OF SYSTEMS: My complete review of systems is negative except as mentioned in the HPI. Past Medical/Surgical History: Includes anxiety, panic attacks Social history: Patient occasionally uses THC. Occasionally drinks alcohol. Smoking Status: Current every day smoker Physical Exam: Vitals noted GENERAL: Well-appearing, in no acute distress, alert. HEENT: Eyes normal to inspection, normal pharynx, no signs of dehydration. NECK: No thyromegaly, no lymphadenopathy, supple. RESPIRATORY: Clear to auscultation bilaterally, no rales, rhonchi or wheezing. CVS: Regular rate and rhythm, no rubs, murmurs, or gallops. ABDOMEN: Soft, nontender, nondistended, no organomegaly. BACK: Normal to inspection, no CVA tenderness. SKIN: Normal color, no rash, warm, dry. No pallor. EXTREMITIES: No pedal edema, no calf tenderness, no Homans sign or cords, no joint swelling. NEURO/PSYCH: Alert and oriented, normal mood and affect, normal motor sensory exam. Constitutional: Initial Vital Signs Temperature (C) 36.5 C 07/21/17 14:21 Heart Rate 76 07/21/17 14:21 Respiratory Rate 16 07/21/17 14:21 Blood Pressure 115/77 07/21/17 14:21 O2 Sat (%) 98 07/21/17 14:21 O2 Delivery Mode Room Air Allergies/Adverse Reactions: No Known Allergies Allergy (Verified 07/21/17 14:20) Home Medications: Medication Instructions Recorded Zolpidem Tartrate [Ambien 10 mg] 10 mg PO HS #5 tablet 07/21/17 Medical Decision Making ED Course/Re-evaluation: In the emergency department I discussed possible etiologies with the patient. I answered all his questions. The patient will be given a prescription of Ambien 10 mg tablets. He states he has used Ambien before tolerated it well. I gave him warnings regarding Ambien use. He understands he needs to take this medication when he is in bed and ready to go to sleep. He is given warnings prior to leaving. He is given follow-up with the primary care physician. Differential Diagnosis: My differential includes but is not limited to anxiety, panic attack, insomnia, medication abuse Departure - Departure Disposition: Home, Routine, Self-Care Clinical Impression: Insomnia Qualifiers: Insomnia type: unspecified Qualified Code(s): G47.00 - Insomnia, unspecified Condition: Good Instructions: Insomnia (ED) Additional Instructions: Return with worsening symptoms or concerns. You need close follow-up with her primary care physician. You will not be given refills of sleeping medication from the emergency department. The only take your sleeping pill while in bed ready to go to sleep. Follow the directions of the prescription. Referrals: Chuck Francis MD [Medical Doctor] - 3-4 days, if not improved Prescriptions: Zolpidem Tartrate [Ambien 10 mg] 10 mg PO HS #5 tablet
[2017-07-21 15:46] VITALS: BP 137/82; PULSE 71; O2SAT 95
== END 2017-07-21 15:44 | disposition home or self-care (01) ==
DX: G47.00 Insomnia, unspecified (principal); F17.200 Nicotine dependence, unspecified, uncomplicated

== ENCOUNTER 2017-10-14 11:42 | Emergency (ER) | payer MEDICAID ==
[2017-10-14] MEDS ORDERED: LORazepam 2 MG/ML INJ IVP PRN (12:21)
[2017-10-14] MEDS ORDERED: LORazepam 1 MG TAB PO PRN (12:21)
--- NOTE | 2017-10-14 12:27 | EDPHY ---
H & P Stated Complaint: ETOH withdrawl - Personal History Tetanus Vaccine Date: LESS THAN 10 YEARS - Medical/Surgical History Hx Asthma: No Hx Chronic Respiratory Disease: No Hx Diabetes: No Hx Cardiac Disease: No Hx Renal Disease: No Hx Cirrhosis: No Hx Alcoholism: No Hx HIV/AIDS: No Hx Splenectomy or Spleen Trauma: No Other PMH: PMHx: anxiety/panic attacks/insomnia, ETOH abuse. PSHx: denies - Social History Smoking Status: Current every day smoker Time Seen by Provider: 10/14/17 12:06 HPI/ROS: CHIEF COMPLAINT: Suicidal ideation HISTORY OF PRESENT ILLNESS: 36-year-old male history of depression, alcoholism , in the ER with father and brother complaining of acute alcohol withdrawal symptoms, suicidal ideation with plan possibly to hang himself. His brother discovered a noose in his room. Patient and father state that he is very self critical. Patient is requesting assistance from his alcoholism and depression. No seizure. No hallucination REVIEW OF SYSTEMS: A ten point review of systems was performed and is negative with the exception of the items mentioned in the HPI PAST MEDICAL & SURGICAL HISTORY: Depression. Alcoholism. SOCIAL HISTORY: Last drink of alcohol was 3 days ago FAMILY HISTORY: No pertinent family history PHYSICAL EXAM (Prior to examination, patient consented to physical exam, hands were washed and my usual and customary physical exam procedures followed) 1) GENERAL: Well-developed, well-nourished, alert and oriented. Tearful. 2) HEAD: Normocephalic, atraumatic 3) HEENT: Pupils equal, round, reactive to light bilaterally. Sclera anicteric. 4) NECK: Full range of motion, no meningeal signs. 5) LUNGS: Clear auscultation bilaterally, no wheezes, no rhonchi, no retractions. 6) HEART: Regular rate and rhythm, no murmur, no heave, no gallop. 7) ABDOMEN: No guarding, no rebound, no focal tenderness,, 8) MUSCULOSKELETAL: No peripheral edema or discoloration. 9) BACK: No visual or palpable abnormality. 10) SKIN: No rash, no petechiae. 11) Psychiatric: Patient is oriented X 3, he is tearful. Tremulous DIFFERENTIAL DIAGNOSIS: In no particular order including but not limited to depression, suicidal ideation, homicidal ideation (Nadir Live Мария) Constitutional: Initial Vital Signs Heart Rate 71 10/14/17 11:51 Respiratory Rate 24 H 10/14/17 11:51 Blood Pressure 149/99 H 10/14/17 11:51 O2 Sat (%) 99 10/14/17 11:51 O2 Delivery Mode Room Air Allergies/Adverse Reactions: No Known Allergies Allergy (Verified 10/14/17 11:50) Medical Decision Making ED Course/Re-evaluation: 12:25 p.m.: Consultation with Dr. Carla Polanco this patient was placed on M1 hold as he actively endorses suicidal ideations with plan possibly to hang himself. His brother discovered a tied noose in his room, is father's taken is going to wait. Patient states that he is very self critical with suicidal thoughts. I believe he has an imminent danger to himself. I discussed with patient and he is agreeable with this. 5:30 p.m.: Care patient transferred to Dr. Chris Lopez. (Nadir Live Мария) Other Provider: I assumed care of the patient at 5:00 p.m. Pending psychiatric disposition. Update at 10:00 p.m.: The patient was evaluated by [facility]. The patient is currently tucker for safety and is not suicidal. The patient [facility] with his alcohol abuse. The patient's father has consented to this plan and is comfortable with the disposition. [facility] has recommended that the M1 psychiatric hold the vacated in the patient be discharged to the [facility]. (Deion Lopez) - Data Points Laboratory Results: Laboratory Results 10/14/17 12:03 10/14/17 12:03 10/14/17 10/14/17 10/14/17 12:03 12:03 12:03 WBC 7.67 10^3/uL 10^3/uL (3.80-9.50) RBC 4.83 10^6/uL 10^6/uL (4.40-6.38) Hgb 14.9 g/dL g/dL (13.7-17.5) Hct 43.9 % % (40.0-51.0) MCV 90.9 fL fL (81.5-99.8) MCH 30.8 pg pg (27.9-34.1) MCHC 33.9 g/dL g/dL (32.4-36.7) RDW 13.1 % % (11.5-15.2) Plt Count 166 10^3/uL 10^3/uL (150-400) MPV 9.6 fL fL (8.7-11.7) Neut % (Auto) 74.0 % % (39.3-74.2) Lymph % (Auto) 12.4 % L % (15.0-45.0) Cavalier % (Auto) 12.4 % % (4.5-13.0) Eos % (Auto) 0.3 % L % (0.6-7.6) Baso % (Auto) 0.5 % % (0.3-1.7) Nucleat RBC Rel Count 0.0 % % (0.0-0.2) Absolute Neuts (auto) 5.68 10^3/uL 10^3/uL (1.70-6.50) Absolute Lymphs (auto) 0.95 10^3/uL L 10^3/uL (1.00-3.00) Absolute Monos (auto) 0.95 10^3/uL H 10^3/uL (0.30-0.80) Absolute Eos (auto) 0.02 10^3/uL L 10^3/uL (0.03-0.40) Absolute Basos (auto) 0.04 10^3/uL 10^3/uL (0.02-0.10) Absolute Nucleated RBC 0.00 10^3/uL 10^3/uL (0-0.01) Immature Gran % 0.4 % % (0.0-1.1) Immature Gran # 0.03 10^3/uL 10^3/uL (0.00-0.10) Sodium 136 mEq/L mEq/L (135-145) Potassium 3.4 mEq/L L mEq/L (3.5-5.2) Chloride 100 mEq/L mEq/L (97-110) Carbon Dioxide 22 mEq/l mEq/l (22-31) Anion Gap 14 mEq/L mEq/L (8-16) BUN 7 mg/dL mg/dL (7-23) Creatinine 0.7 mg/dL mg/dL (0.7-1.3) Estimated GFR > 60 Glucose 136 mg/dL H mg/dL (70-100) Calcium 9.8 mg/dL mg/dL (8.5-10.4) Salicylates < 1.0 mg/dL L mg/dL (2.0-20.0) Urine Opiates Screen NEGATIVE (NEGATIVE) Acetaminophen < 10 mcg/mL L mcg/mL (10-30) Urine Barbiturates NEGATIVE (NEGATIVE) Ur Phencyclidine Scrn NEGATIVE (NEGATIVE) Ur Amphetamine Screen NEGATIVE (NEGATIVE) U Benzodiazepines Scrn NEGATIVE (NEGATIVE) Urine Cocaine Screen NEGATIVE (NEGATIVE) U Marijuana (THC) Screen NON-NEGATIVE H (NEGATIVE) Ethyl Alcohol < 10 mg/dL mg/dL (0-10) Medications Given: Lorazepam (Ativan Injection) 0 mg IVP Q1H PRN; Protocol PRN Reason: Alcohol Withdrawal w/IV access Stop: 10/15/17 00:21 Last Admin: 10/14/17 12:47 Dose: 2 mg Discontinued Medications Lorazepam (Ativan) 1 mg PO EDNOW ONE Stop: 10/14/17 17:18 Last Admin: 10/14/17 17:21 Dose: 1 mg Lorazepam (Ativan) 1 mg PO EDNOW ONE Stop: 10/14/17 20:01 Last Admin: 10/14/17 21:27 Dose: Not Given Departure - Departure Disposition: Home, Routine, Self-Care Clinical Impression: Alcohol withdrawal Condition: Good Instructions: Alcohol Dependence (ED) Additional Instructions: 1. Please follow-up with the mental health resources provided in the ED today. 2. [facility] does operate a 11/03 psychiatric crisis unit located at [address] [place] [address]. The telephone number for the 24 hour crisis center is [phone]. 3. Please return to the ED if you are feeling suicidal, having thoughts of harming yourself/others or should you feel unsafe or have worsening symptoms. Referrals: [facility] [Outside] - As per Instructions
[2017-10-14 12:30] LABS: PLATELET COUNT 166 10^3/uL (150-400)
[2017-10-14] MEDS ORDERED: LORazepam 1 MG TAB PO ONE ×2 (17:17→20:00)
[2017-10-14] MEDS ORDERED: CHLORDIAZEPOXIDE 25MG PREPK#6 BTL TAKEHOME ONE (21:44)
[2017-10-14 22:20] VITALS: BP 139/80; PULSE 75; RESP 16; TEMP 98.1; O2SAT 97
== END 2017-10-14 22:19 | disposition home or self-care (01) ==
DX: F10.239 Alcohol dependence with withdrawal, unspecified (principal); F17.200 Nicotine dependence, unspecified, uncomplicated
CPT/HCPCS: 80305; 96374; G0480; J2060

== ENCOUNTER 2017-10-15 11:02 | Emergency (ER) | payer MEDICAID ==
--- NOTE | 2017-10-15 11:51 | EDPHY ---
H & P Time Seen by Provider: 10/15/17 11:20 HPI/ROS: CHIEF COMPLAINT: "I'm suicidal" HISTORY OF PRESENT ILLNESS: 36-year-old male seen emergency department yesterday for acute alcohol withdrawal and suicidal ideations. He was subsequently seen by mental health expediter service order and they recommend were vacated the M1 hold since [facility]. He states that he is currently feeling significantly improved regarding his alcohol withdrawal symptoms, is feeling improvement with the benzodiazepine however early this morning his suicidal ideations returned. His plan is to hang himself or to "a painless way". He is not specifically sure how he would kill himself in a "painless way" however describes doing research online in to variety of ways to kill himself. REVIEW OF SYSTEMS: A ten point review of systems was performed and is negative with the exception of the items mentioned in the HPI PAST MEDICAL & SURGICAL HISTORY: Depression. Alcoholism. SOCIAL HISTORY:Last drink of alcohol 5 days ago PHYSICAL EXAM (Prior to examination, patient consented to physical exam, hands were washed and my usual and customary physical exam procedures followed) 1) GENERAL: Well-developed, well-nourished, alert and oriented. Depressed, flat affect, tearful 2) HEAD: Normocephalic, atraumatic 3) HEENT: Pupils equal, round, reactive to light bilaterally. Sclera anicteric. 4) NECK: Full range of motion, no meningeal signs. 5) LUNGS: Clear auscultation bilaterally, no wheezes, no rhonchi, no retractions. 6) HEART: Regular rate and rhythm, no murmur, no heave, no gallop. 7) ABDOMEN: No guarding, no rebound, no focal tenderness, 8) MUSCULOSKELETAL: Moving all extremities, no focal areas of tenderness, no obvious trauma. No peripheral edema or discoloration. 9) BACK: No CVA tenderness, no midline vertebral tenderness, no fluctuance, no step-off, no obvious trauma, no visual or palpable abnormality. 10) SKIN: No rash, no petechiae. 11) Psychiatric: Patient is oriented X 3, there is no agitation. DIFFERENTIAL DIAGNOSIS: In no particular include but limited to depression, suicidal ideation, homicidal ideation, acute alcohol withdrawal Smoking Status: Current every day smoker Constitutional: Initial Vital Signs Temperature (C) 36.3 C 10/15/17 11:16 Heart Rate 70 10/15/17 11:16 Respiratory Rate 18 10/15/17 11:16 Blood Pressure 144/76 H 10/15/17 11:16 O2 Sat (%) 100 10/15/17 11:16 O2 Delivery Mode Room Air Allergies/Adverse Reactions: No Known Allergies Allergy (Verified 10/15/17 11:16) Home Medications: Medication Instructions Recorded Ativan 10/15/17 Librium 10 mg (RX) 10/15/17 MDM/Departure - MDM Medications Given: Nicotine Polacrilex (Nicorette) 2 mg B PRN PRN PRN Reason: Nicotine Withdrawal Stop: 04/13/18 13:30 Last Admin: 10/15/17 13:36 Dose: 2 mg Discontinued Medications Ibuprofen (Motrin) 600 mg PO EDNOW ONE Stop: 10/15/17 13:32 Last Admin: 10/15/17 13:37 Dose: 600 mg Lorazepam (Ativan) 1 mg PO EDNOW ONE Stop: 10/15/17 12:05 Last Admin: 10/15/17 12:08 Dose: 1 mg Lorazepam (Ativan) 1 mg PO EDNOW ONE Stop: 10/15/17 13:31 Last Admin: 10/15/17 13:36 Dose: 1 mg Nicotine (Nicoderm Cq) 21 mg TD EDNOW ONE Stop: 10/15/17 11:53 Last Admin: 10/15/17 11:58 Dose: 21 mg ED Course/Re-evaluation: 11:50 a.m.: I reviewed this patient's medical records. Compared to 24 hr ago when I initially evaluated the patient he appears significantly improved regarding his alcohol withdrawal symptoms. I think that encephalopathy, delirium tremens is less than likely. He does actively endorse suicidal ideation with plan. I am recommending placing the patient on M1 hold in consultation with Dr. Chandan Durant. We will await mental health evaluation. 2:25 p.m.: The mental health expediter service order has evaluated the patient and I had a discussion with the family. I was informed at this time that they recommend vacated the M1 hold, the patient will be staying with the father , the patient has contracted for safety, is not actively endorsing suicidal ideation, has a plan to go to the [facility] dual diagnosis center for admission tomorrow. - Depart Disposition: Home, Routine, Self-Care Clinical Impression: Alcoholism Depression Qualifiers: Depression Type: other depression Qualified Code(s): F32.89 - Other specified depressive episodes Condition: Good Instructions: Depression (ED), Alcohol Withdrawal (ED) Additional Instructions: Return to the ER if you develop thoughts of hurting herself or others or any other symptoms that concern you Referrals: Keep, your appointment at [facility] tomorrow [Other] - As per Instructions
[2017-10-15] MEDS ORDERED: NICOTINE 21 MG/24 HR PATCH TD ONE ×2 (11:52)
[2017-10-15 11:58] LABS: PLATELET COUNT 175 10^3/uL (150-400)
[2017-10-15] MEDS ORDERED: LORazepam 1 MG TAB PO ONE ×2 (12:04→13:30)
[2017-10-15] MEDS ORDERED: IBUPROFEN 600 MG TAB PO ONE (13:31)
[2017-10-15] MEDS ORDERED: NICOTINE POLACRILEX 2 MG GUM B PRN (13:31)
[2017-10-15 14:55] VITALS: BP 144/86; PULSE 85; RESP 16; TEMP 98.6; O2SAT 97
== END 2017-10-15 14:55 | disposition home or self-care (01) ==
DX: F10.20 Alcohol dependence, uncomplicated (principal); F17.200 Nicotine dependence, unspecified, uncomplicated; F32.89 Other specified depressive episodes
CPT/HCPCS: 80305; G0480

== ENCOUNTER 2017-11-16 18:31 | Emergency (ER) | payer MEDICAID ==
[2017-11-16 18:44] VITALS: RESP 16; TEMP 96.8
[2017-11-16] MEDS ORDERED: LORazepam 1 MG TAB PO ONE (18:56)
--- NOTE | 2017-11-16 18:58 | EDPHY ---
H & P Stated Complaint: panic attack, pt worried about "dts" not taking meds Time Seen by Provider: 11/16/17 18:45 HPI/ROS: CHIEF COMPLAINT: "I am Freaking out" HISTORY OF PRESENT ILLNESS: 37-year-old male history of alcoholism, anxiety, depression, released from [facility] 3 days ago for alcohol detoxification, started drinking again last night, last drink of alcohol was last evening. He is in the ER complaining of high levels of anxiety, hyperventilation, carpal pedal spasms. Denies suicidal or homicidal ideation. Denies self-injury. No seizure. No hallucination. REVIEW OF SYSTEMS: A ten point review of systems was performed and is negative with the exception of the items mentioned in the HPI PAST MEDICAL & SURGICAL HISTORY: Alcoholism. Anxiety. Depression. SOCIAL HISTORY: Last drink of alcohol last night PHYSICAL EXAM (Prior to examination, patient consented to physical exam, hands were washed and my usual and customary physical exam procedures followed) 1) GENERAL: Well-developed, well-nourished, alert and oriented. Appears anxious , hyperventilating 2) HEAD: Normocephalic, atraumatic 3) HEENT: Pupils equal, round, reactive to light bilaterally. Sclera anicteric. 4) NECK: Full range of motion, no meningeal signs. 5) LUNGS: Clear auscultation bilaterally, no wheezes, no rhonchi, no retractions. 6) HEART: Regular rate and rhythm, no murmur, no heave, no gallop. 7) ABDOMEN: No guarding, no rebound, no focal tenderness,, 8) MUSCULOSKELETAL: No peripheral edema or discoloration. 9) BACK: No obvious trauma, no visual or palpable abnormality. 10) SKIN: No rash, no petechiae. 11) Psychiatric: Patient is oriented X 3, there is no agitation. DIFFERENTIAL DIAGNOSIS: In no particular order including but not limited to acute anxiety, delirium tremens, acute alcohol withdrawal, suicidal ideation, homicidal ideation - Personal History Tetanus Vaccine Date: LESS THAN 10 YEARS - Medical/Surgical History Hx Asthma: No Hx Chronic Respiratory Disease: No Hx Diabetes: No Hx Cardiac Disease: No Hx Renal Disease: No Hx Cirrhosis: No Hx Alcoholism: No Hx HIV/AIDS: No Hx Splenectomy or Spleen Trauma: No Other PMH: PMHx: anxiety/panic attacks/insomnia, ?bipolar?,ETOH abuse. PSHx: denies - Social History Smoking Status: Current every day smoker Constitutional: Initial Vital Signs Temperature (C) 36.0 C 11/16/17 18:41 Heart Rate 90 11/16/17 18:41 Respiratory Rate 16 11/16/17 18:41 Blood Pressure 145/95 H 11/16/17 18:41 O2 Sat (%) 98 11/16/17 18:41 O2 Delivery Mode Room Air Allergies/Adverse Reactions: No Known Allergies Allergy (Verified 10/15/17 11:16) Home Medications: Medication Instructions Recorded Gabapentin 11/16/17 LORazepam [Ativan 1 mg (RX)] 1 mg PO Q6 PRN #3 tab 11/16/17 Propranolol Sr 11/16/17 Seroquel 11/16/17 buPROPion 11/16/17 Medical Decision Making ED Course/Re-evaluation: 6:58 p.m.: Old medical records reviewed. Will administer oral benzodiazepine as I think that he has baseline components of anxiety which are more than likely exacerbated by more than likely acute alcohol withdrawal. He denies suicidal or homicidal ideation at this time. 7:50 p.m.: Patient requested I speak with his aunt in [place] who is a retired nurse practitioner. He signed medical release form prior to my having this conversation which I had with the patient, his mother and his aunt all on speaker phone in his room. He is feeling significant improvement with benzodiazepine. Denies suicidal or homicidal ideation. He appears more calm. States that he is worried about what will happen when his benzodiazepine runs out. [facility] however he states that he has had unpleasant experiences there. He does agree to go to the mental health crisis Center. For his high levels of anxiety I have agreed to provide him with 3 Ativan 1 mg tablets. I do not think he meets criteria for an M1 hold at this time. He is agreeable with this plan. - Data Points Medications Given: Discontinued Medications Lorazepam (Ativan) 2 mg PO EDNOW ONE Stop: 11/16/17 18:57 Last Admin: 11/16/17 18:58 Dose: 2 mg Departure - Departure Disposition: Home, Routine, Self-Care Clinical Impression: Anxiety Alcohol withdrawal Qualifiers: Complication of substance-induced condition: with unspecified complication Qualified Code(s): F10.239 - Alcohol dependence with withdrawal, unspecified Condition: Good Instructions: Alcohol Withdrawal (ED), Anxiety (ED) Additional Instructions: Return to the ER immediately if you experience thoughts of hurting yourself, thoughts of hurting other people, thoughts of killing other people or killing yourself. Referrals: [facility],. [Clinic] - As per Instructions (Go to the [facility] 24 hr crisis [facility] at [address]) Prescriptions: LORazepam [Ativan 1 mg (RX)] 1 mg PO Q6 PRN #3 tab PRN Reason: Anxiety
[2017-11-16 20:21] VITALS: BP 150/90; PULSE 74; O2SAT 94
== END 2017-11-16 20:21 | disposition home or self-care (01) ==
DX: F41.9 Anxiety disorder, unspecified (principal); F10.239 Alcohol dependence with withdrawal, unspecified; F17.200 Nicotine dependence, unspecified, uncomplicated